=== PATIENT | female | born 1975 | race Caucasian/White ===

== ENCOUNTER 2020-01-20 07:50 | Day surgery (SDC) | payer OTHER ==
[~2020-01-20] VITALS: Ht 162.6 cm; Wt 70.7 kg
[~2020-01-20 07:50] MED LIST: IBUP-1222 PO; PRENATAL VITAMINS PO
[2020-01-20] MEDS ORDERED: LACTATED RINGERS 1,000 ML IV SCH (08:15)
[2020-01-20] MEDS ORDERED: Progesterone VG (08:24)
[2020-01-20 08:27] VITALS: BP 130/86
[2020-01-20] MEDS ORDERED: CHLORHEXIDINE 15 ML UDC MM ONE (08:30)
[2020-01-20 08:38] LABS: BASOPHILS # (AUTO) 0.05 x10^3/uL (0-0.1); BASOPHILS % (AUTO) 1 % (0-1); EOSINOPHILS # (AUTO) 0.04 x10^3/uL (0-0.4); EOSINOPHILS % (AUTO) 0 % (1-7); LYMPHOCYTES # (AUTO) 1.98 x10^3/uL (1-3.4); LYMPHOCYTES % (AUTO) 20 % (22-44); MD NO; MEAN CORPUSCULAR HEMOGLOBIN 26.7 pg (27.0-34.8); MEAN CORPUSCULAR HGB CONC 32.6 g/dL (32.4-35.8); MEAN CORPUSCULAR VOLUME 81.9 fL (80-100); MEAN PLATELET VOLUME 6.8 fL (7.4-10.4); MONOCYTES # (AUTO) 0.33 x10^3/uL (0.2-0.8); MONOCYTES % (AUTO) 3 % (2-9); NEUTROPHILS # (AUTO) 7.58 x10^3/uL (1.8-6.8); NEUTROPHILS % (AUTO) 76 % (42-75); PLATELET COUNT 411 x10^3/uL (130-400); RED BLOOD COUNT 5.07 x10^6/uL (3.82-5.3); RED CELL DISTRIBUTION WIDTH 19.5 % (9.6-15.2)
[2020-01-20 08:46] LABS: ANION GAP 10 mmol/L (5-15); CALCIUM 8.3 mg/dL (8.5-10.1); CHLORIDE 107 mmol/L (98-107); CREATININE 0.61 mg/dL (0.55-1.02)
[2020-01-20] MEDS ORDERED: BUPIVACAINE/PF 0.25% ONE (09:46)
[2020-01-20] MEDS ORDERED: EPINEPHRINE 1 MG/ML, 1ML ONE (09:47)
[2020-01-20] MEDS ORDERED: SILVER NITRATE STICK TP ONE (09:47)
[2020-01-20] MEDS ORDERED: VASOPRESSIN 20 UNIT/ML, 1ML ONE (09:47)
[2020-01-20] MEDS ORDERED: OXYTOCIN 10 UNITS/ML, 1ML ONE (09:48)
[2020-01-20] MEDS ORDERED: METHYLERGONOVINE 0.2 MG/ML IM ONE (09:48)
[2020-01-20] MEDS ORDERED: MISOPROSTOL 200 MCG TABLET ONE (09:48)
[2020-01-20] MEDS ORDERED: MIDAZOLAM 1 MG/ML, 2ML ONE (09:49)
[2020-01-20] MEDS ORDERED: FENTANYL PF 250 MCG/5ML ONE (09:50)
[2020-01-20] MEDS ORDERED: ROCURONIUM 10 MG/ML,10ML ONE (10:01)
[2020-01-20] MEDS ORDERED: SUCCINYLCHOLINE 20 MG/ML, 10ML ONE (10:01)
[2020-01-20] MEDS ORDERED: PROPOFOL 10 MG/ML, 100ML IV ONE (10:01)
[2020-01-20] MEDS ORDERED: DEXAMETHASONE 4 MG/ML, 1ML ONE ×2 (10:06→10:20)
[2020-01-20] MEDS ORDERED: CEFAZOLIN 1,000 MG ONE ×2 (10:08→10:20)
[2020-01-20] MEDS ORDERED: ONDANSETRON 2MG/ML, 2ML ONE ×2 (10:19→10:20)
[2020-01-20] MEDS ORDERED: SUGAMMADEX 200 MG/2 ML IVPush ONE (10:22)
[2020-01-20] MEDS ORDERED: OXYcodone 5 MG/5 ML ORAL.SOL UDC PO PRN (10:30)
[2020-01-20] MEDS ORDERED: ALBUTEROL SULFATE 2.5 MG/3 ML NPPB PRN (10:30)
[2020-01-20] MEDS ORDERED: DIAZEPAM 5 MG/ML, 2ML IVPush PRN (10:30)
[2020-01-20] MEDS ORDERED: EPHEDRINE 50 MG/ML, 1ML IVPush PRN (10:30)
[2020-01-20] MEDS ORDERED: ONDANSETRON 2MG/ML, 2ML IVPush PRN (10:30)
[2020-01-20] MEDS ORDERED: LABETALOL 5MG/ML, 20ML IV PRN (10:30)
[2020-01-20] MEDS ORDERED: PROMETHAZINE 12.5 MG SUPP PR PRN (10:30)
[2020-01-20] MEDS ORDERED: PROMETHAZINE 25 MG/ML, 1ML IVPush PRN (10:30)
[2020-01-20] MEDS ORDERED: MEPERIDINE/PF 25MG/0.5ML IVPush PRN (10:30)
[2020-01-20] MEDS ORDERED: hydrALAzine 20 MG/ML, 1ML IV PRN (10:30)
[2020-01-20] MEDS ORDERED: MIDAZOLAM 1 MG/ML, 2ML IV PRN (10:30)
[2020-01-20] MEDS ORDERED: DIPHENHYDRAMINE 50 MG/ML, 1ML IVPush PRN (10:30)
[2020-01-20] MEDS ORDERED: FENTANYL PF 100 MCG/2ML IV PRN (10:30)
[2020-01-20] MEDS ORDERED: ACETAMINOPHEN 325 MG TABLET PO PRN (10:30)
[2020-01-20] MEDS ORDERED: HYDROmorphone 1 MG/ML, 1ML INJ IVPush PRN (10:30)
[2020-01-20] MEDS ORDERED: KETOROLAC 30 MG/1 ML IVPush SCH (11:30)
== END 2020-01-20 12:00 | disposition home or self-care (01) ==
LOC: OUT 07:50
PROVIDERS: ATTEND Obstetrics & Gynecology
DX: O02.1 Missed abortion (principal); Z11.59 Encounter for screening for other viral diseases; Z3A.12 12 weeks gestation of pregnancy; Z83.3 Family history of diabetes mellitus
CPT/HCPCS: 36415; 59820; 80048; 85025; 86850; 86900; 87635; 88305; J0330; J0690; J1100; J1885; J2250; J2405; J2704; J2790; J3010; J7120; J0171; J3490; J2210; J2590